=== PATIENT | male | born 1980 | race Hispanic/Latino ===

== ENCOUNTER 2021-06-29 08:07 | Inpatient (IN) | payer BC ==
[~2021-06-29] VITALS: Ht 170.2 cm; Wt 127.0 kg
[2021-06-29 08:40] LABS: BASOPHILS % 0.1 % (0.0-1.0); HEMATOCRIT 47.7 % (38.2-49.6); HEMOGLOBIN 15.8 g/dL (14.0-18.0); LYMPHOCYTES # (AUTO) 1.8 (1.0-3.2); MEAN CORPUSCULAR HEMOGLOBIN 30.1 pg (28-32); MEAN CORPUSCULAR HGB CONC 33.1 g/dL (31-35); MEAN CORPUSCULAR VOLUME 90.9 fL (81-99); MONOCYTES # (AUTO) 0.5 (0.2-0.8); MONOCYTES % 4.6 % (4.4-11.3); NEUTROPHILS # (AUTO) 7.6 (2.1-6.9); NEUTROPHILS % 76.6 % (38.7-80.0); PLATELET COUNT 151 x10e3/uL (140-360); RED BLOOD COUNT 5.25 x10e6/uL (4.3-5.7); RED CELL DISTRIBUTION WIDTH 13.8 % (11.7-14.4)
[2021-06-29 09:04] LABS: ALBUMIN 3.3 g/dL (3.5-5.0); ALBUMIN/GLOBULIN RATIO 0.7 (0.8-2.0); ANION GAP 16.1 mmol/L (8-16); CALCIUM 8.5 mg/dL (8.4-10.2); POTASSIUM 4.1 mmol/L (3.5-5.1)
[2021-06-29 09:56] LABS: CREATINE KINASE MB 0.6 ng/mL (0-5.0)
[2021-06-29] MEDS ORDERED: DEXAMETHASONE 4 MG TAB PO SCH (13:00)
[2021-06-29] MEDS: CEFTRIAXONE 2 GM in SODIUM CHLORIDE 0.9% 100 ML IV SCH (14:00)
[2021-06-29] MEDS: ZINC SULFATE 220 MG CAP PO SCH (15:00)
[2021-06-29] MEDS: DEXAMETHASONE SOD PHOS 10 MG/1 ML VIAL IV SCH (16:00)
[2021-06-29] MEDS ORDERED: REMDESIVIR 200MG/NS 100ML 200 MG IV ONE (16:00)
[2021-06-29 16:45] LABS: CREATINE KINASE MB 0.6 ng/mL (0-5.0)
[2021-06-29] MEDS ORDERED: LACTATED RINGER'S 1,000 ML INJ ONE (16:45)
[2021-06-29] MEDS: ASCORBIC ACID 500 MG TAB PO SCH (16:55)
[2021-06-29] MEDS: ACETAMINOPHEN 325 MG TAB PO PRN (18:34)
[2021-06-29] MEDS ORDERED: ZOLPIDEM TARTRATE 5 MG TAB PO PRN (21:00)
[2021-06-29] MEDS: ENOXAPARIN 30 MG/0.3 ML SYR SC SCH (22:33)
[2021-06-30 06:06] LABS: BASOPHILS % 0.1 % (0.0-1.0); HEMATOCRIT 43.9 % (38.2-49.6); HEMOGLOBIN 14.3 g/dL (14.0-18.0); LYMPHOCYTES # (AUTO) 1.3 (1.0-3.2); LYMPHOCYTES % 18.2 % (18.0-39.1); MEAN CORPUSCULAR HEMOGLOBIN 29.9 pg (28-32); MEAN CORPUSCULAR HGB CONC 32.6 g/dL (31-35); MEAN CORPUSCULAR VOLUME 91.6 fL (81-99); MONOCYTES # (AUTO) 0.4 (0.2-0.8); MONOCYTES % 5.6 % (4.4-11.3); NEUTROPHILS # (AUTO) 5.5 (2.1-6.9); NEUTROPHILS % 75.4 % (38.7-80.0); PLATELET COUNT 156 x10e3/uL (140-360); RED BLOOD COUNT 4.79 x10e6/uL (4.3-5.7); RED CELL DISTRIBUTION WIDTH 13.9 % (11.7-14.4)
[2021-06-30 06:32] LABS: POTASSIUM 4.3 mmol/L (3.5-5.1)
[2021-06-30 07:00] LABS: ALBUMIN 2.8 g/dL (3.5-5.0); ALBUMIN/GLOBULIN RATIO 0.7 (0.8-2.0); ANION GAP 14.3 mmol/L (8-16); CREATININE, SERUM 0.8 mg/dL (0.72-1.25)
[2021-06-30 07:21] LABS: CREATINE KINASE MB 0.7 ng/mL (0-5.0)
[2021-06-30] MEDS: ASCORBIC ACID 500 MG TAB PO SCH ×2 (08:00→16:24)
[2021-06-30] MEDS: ZINC SULFATE 220 MG CAP PO SCH (08:00)
[2021-06-30] MEDS: FAMOTIDINE 20 MG TAB PO SCH ×2 (08:00→16:24)
[2021-06-30] MEDS: ENOXAPARIN 30 MG/0.3 ML SYR SC SCH ×2 (09:41→21:00)
[2021-06-30] MEDS: CEFTRIAXONE 2 GM in SODIUM CHLORIDE 0.9% 100 ML IV SCH (14:08)
[2021-06-30] MEDS: BARICITINIB 2 MG TABLET PO SCH (16:24)
[2021-06-30] MEDS: DEXAMETHASONE SOD PHOS 10 MG/1 ML VIAL IV SCH (16:24)
[2021-06-30] MEDS: REMDESIVIR 100MG/NS 100ML 100 MG IV SCH (17:00)
[2021-06-30] MEDS: ACETAMINOPHEN 325 MG TAB PO PRN (21:43)
[2021-07-01 06:40] LABS: BASOPHILS % 0.1 % (0.0-1.0); HEMATOCRIT 42.6 % (38.2-49.6); HEMOGLOBIN 13.9 g/dL (14.0-18.0); LYMPHOCYTES # (AUTO) 1.5 (1.0-3.2); LYMPHOCYTES % 14.5 % (18.0-39.1); MEAN CORPUSCULAR HEMOGLOBIN 29.8 pg (28-32); MEAN CORPUSCULAR HGB CONC 32.6 g/dL (31-35); MEAN CORPUSCULAR VOLUME 91.4 fL (81-99); MONOCYTES # (AUTO) 0.6 (0.2-0.8); MONOCYTES % 5.7 % (4.4-11.3); NEUTROPHILS # (AUTO) 8.2 (2.1-6.9); NEUTROPHILS % 79.1 % (38.7-80.0); PLATELET COUNT 190 x10e3/uL (140-360); RED BLOOD COUNT 4.66 x10e6/uL (4.3-5.7); RED CELL DISTRIBUTION WIDTH 13.7 % (11.7-14.4)
[2021-07-01] MEDS: ZINC SULFATE 220 MG CAP PO SCH (07:03)
[2021-07-01] MEDS: ENOXAPARIN 30 MG/0.3 ML SYR SC SCH ×2 (07:03→22:33)
[2021-07-01] MEDS: ASCORBIC ACID 500 MG TAB PO SCH ×2 (07:03→17:05)
[2021-07-01] MEDS: FAMOTIDINE 20 MG TAB PO SCH ×2 (07:03→17:05)
[2021-07-01 07:05] LABS: ALBUMIN 2.6 g/dL (3.5-5.0); ALBUMIN/GLOBULIN RATIO 0.6 (0.8-2.0); ANION GAP 12.3 mmol/L (8-16); CREATININE, SERUM 0.75 mg/dL (0.72-1.25); POTASSIUM 4.3 mmol/L (3.5-5.1)
[2021-07-01] MEDS: BARICITINIB 2 MG TABLET PO SCH (09:00)
[2021-07-01] MEDS: CEFTRIAXONE 2 GM in SODIUM CHLORIDE 0.9% 100 ML IV SCH (15:02)
[2021-07-01] MEDS: REMDESIVIR 100MG/NS 100ML 100 MG IV SCH (17:05)
[2021-07-01] MEDS: DEXAMETHASONE SOD PHOS 10 MG/1 ML VIAL IV SCH (17:05)
[2021-07-02 05:27] LABS: HEMATOCRIT 43.7 % (38.2-49.6); LYMPHOCYTES # (AUTO) 1.4 (1.0-3.2); LYMPHOCYTES % 14.1 % (18.0-39.1); MEAN CORPUSCULAR HEMOGLOBIN 29.3 pg (28-32); MEAN CORPUSCULAR VOLUME 91.4 fL (81-99); MONOCYTES # (AUTO) 0.6 (0.2-0.8); MONOCYTES % 5.8 % (4.4-11.3); NEUTROPHILS % 79.2 % (38.7-80.0); PLATELET COUNT 236 x10e3/uL (140-360); RED BLOOD COUNT 4.78 x10e6/uL (4.3-5.7); RED CELL DISTRIBUTION WIDTH 13.8 % (11.7-14.4)
[2021-07-02 05:39] LABS: ALBUMIN 2.7 g/dL (3.5-5.0); ALBUMIN/GLOBULIN RATIO 0.6 (0.8-2.0); ANION GAP 14.1 mmol/L (8-16); CALCIUM 8.2 mg/dL (8.4-10.2); CREATININE, SERUM 0.77 mg/dL (0.72-1.25); POTASSIUM 4.1 mmol/L (3.5-5.1)
[2021-07-02] MEDS: ENOXAPARIN 30 MG/0.3 ML SYR SC SCH ×2 (09:00→21:00)
[2021-07-02] MEDS: FAMOTIDINE 20 MG TAB PO SCH ×2 (09:00→16:50)
[2021-07-02] MEDS: ZINC SULFATE 220 MG CAP PO SCH (09:00)
[2021-07-02] MEDS: ASCORBIC ACID 500 MG TAB PO SCH ×2 (09:00→16:50)
[2021-07-02] MEDS: BARICITINIB 2 MG TABLET PO SCH (09:00)
[2021-07-02] MEDS: REMDESIVIR 100MG/NS 100ML 100 MG IV SCH (13:57)
[2021-07-02] MEDS: CEFTRIAXONE 2 GM in SODIUM CHLORIDE 0.9% 100 ML IV SCH (14:37)
[2021-07-02] MEDS: DEXAMETHASONE SOD PHOS 10 MG/1 ML VIAL IV SCH (15:47)
[2021-07-03 06:28] LABS: BASOPHILS % 0.1 % (0.0-1.0); HEMOGLOBIN 14.6 g/dL (14.0-18.0); LYMPHOCYTES # (AUTO) 1.6 (1.0-3.2); LYMPHOCYTES % 18.1 % (18.0-39.1); MEAN CORPUSCULAR HEMOGLOBIN 29.6 pg (28-32); MEAN CORPUSCULAR HGB CONC 32.4 g/dL (31-35); MEAN CORPUSCULAR VOLUME 91.3 fL (81-99); MONOCYTES # (AUTO) 0.6 (0.2-0.8); MONOCYTES % 6.4 % (4.4-11.3); NEUTROPHILS # (AUTO) 6.7 (2.1-6.9); NEUTROPHILS % 74.6 % (38.7-80.0); PLATELET COUNT 265 x10e3/uL (140-360); RED BLOOD COUNT 4.93 x10e6/uL (4.3-5.7); RED CELL DISTRIBUTION WIDTH 13.5 % (11.7-14.4)
[2021-07-03 06:57] LABS: ANION GAP 12.4 mmol/L (8-16); CALCIUM 8.4 mg/dL (8.4-10.2); CREATININE, SERUM 0.77 mg/dL (0.72-1.25); POTASSIUM 4.4 mmol/L (3.5-5.1)
[2021-07-03] MEDS: FAMOTIDINE 20 MG TAB PO SCH ×2 (07:30→17:20)
[2021-07-03 07:51] LABS: ALBUMIN 2.9 g/dL (3.5-5.0); BILIRUBIN,DIRECT 0.2 mg/dL (0.0-0.5)
[2021-07-03] MEDS: REMDESIVIR 100MG/NS 100ML 100 MG IV SCH (16:00)
[2021-07-03] MEDS: DEXAMETHASONE SOD PHOS 10 MG/1 ML VIAL IV SCH (17:19)
[2021-07-03] MEDS: ENOXAPARIN 30 MG/0.3 ML SYR SC SCH ×2 (17:19→21:00)
[2021-07-03] MEDS: ASCORBIC ACID 500 MG TAB PO SCH ×2 (17:19→17:20)
[2021-07-03] MEDS: BARICITINIB 2 MG TABLET PO SCH (17:19)
[2021-07-03] MEDS: ZINC SULFATE 220 MG CAP PO SCH (17:19)
[2021-07-04] MEDS: ENOXAPARIN 30 MG/0.3 ML SYR SC SCH ×2 (05:36→16:31)
[2021-07-04 05:44] LABS: BASOPHILS % 0.1 % (0.0-1.0); HEMATOCRIT 44.4 % (38.2-49.6); HEMOGLOBIN 14.5 g/dL (14.0-18.0); LYMPHOCYTES # (AUTO) 1.2 (1.0-3.2); LYMPHOCYTES % 14.8 % (18.0-39.1); MEAN CORPUSCULAR HEMOGLOBIN 30.3 pg (28-32); MEAN CORPUSCULAR HGB CONC 32.7 g/dL (31-35); MEAN CORPUSCULAR VOLUME 92.7 fL (81-99); MONOCYTES # (AUTO) 0.5 (0.2-0.8); MONOCYTES % 5.7 % (4.4-11.3); NEUTROPHILS # (AUTO) 6.5 (2.1-6.9); NEUTROPHILS % 78.2 % (38.7-80.0); PLATELET COUNT 250 x10e3/uL (140-360); RED BLOOD COUNT 4.79 x10e6/uL (4.3-5.7); RED CELL DISTRIBUTION WIDTH 13.3 % (11.7-14.4)
[2021-07-04 06:10] LABS: ALBUMIN 2.8 g/dL (3.5-5.0); ALBUMIN/GLOBULIN RATIO 0.7 (0.8-2.0); ANION GAP 13.3 mmol/L (8-16); CALCIUM 8.1 mg/dL (8.4-10.2); CREATININE, SERUM 0.79 mg/dL (0.72-1.25); POTASSIUM 4.3 mmol/L (3.5-5.1)
[2021-07-04] MEDS: ASCORBIC ACID 500 MG TAB PO SCH ×2 (10:34→16:31)
[2021-07-04] MEDS: ZINC SULFATE 220 MG CAP PO SCH (10:34)
[2021-07-04] MEDS: FAMOTIDINE 20 MG TAB PO SCH ×2 (10:34→16:31)
[2021-07-04] MEDS: DEXAMETHASONE SOD PHOS 10 MG/1 ML VIAL IV SCH (16:30)
[2021-07-04] MEDS: BARICITINIB 2 MG TABLET PO SCH (16:30)
[2021-07-04] MEDS: REMDESIVIR 100MG/NS 100ML 100 MG IV SCH (16:31)
[2021-07-05 05:52] LABS: BASOPHILS % 0.1 % (0.0-1.0); HEMATOCRIT 44.4 % (38.2-49.6); HEMOGLOBIN 14.4 g/dL (14.0-18.0); LYMPHOCYTES # (AUTO) 1.4 (1.0-3.2); LYMPHOCYTES % 15.6 % (18.0-39.1); MEAN CORPUSCULAR HEMOGLOBIN 29.4 pg (28-32); MEAN CORPUSCULAR HGB CONC 32.4 g/dL (31-35); MEAN CORPUSCULAR VOLUME 90.6 fL (81-99); MONOCYTES # (AUTO) 0.5 (0.2-0.8); MONOCYTES % 6.1 % (4.4-11.3); NEUTROPHILS # (AUTO) 6.8 (2.1-6.9); NEUTROPHILS % 77.3 % (38.7-80.0); PLATELET COUNT 286 x10e3/uL (140-360); RED CELL DISTRIBUTION WIDTH 13.2 % (11.7-14.4)
[2021-07-05 06:27] LABS: ALBUMIN 2.8 g/dL (3.5-5.0); ALBUMIN/GLOBULIN RATIO 0.7 (0.8-2.0); ANION GAP 13.4 mmol/L (8-16); CALCIUM 8.6 mg/dL (8.4-10.2); CREATININE, SERUM 0.74 mg/dL (0.72-1.25); POTASSIUM 4.4 mmol/L (3.5-5.1)
[2021-07-05] MEDS: ASCORBIC ACID 500 MG TAB PO SCH ×2 (07:52→16:14)
[2021-07-05] MEDS: ENOXAPARIN 30 MG/0.3 ML SYR SC SCH ×2 (07:52→21:00)
[2021-07-05] MEDS: ZINC SULFATE 220 MG CAP PO SCH (07:52)
[2021-07-05] MEDS: FAMOTIDINE 20 MG TAB PO SCH ×2 (07:52→16:14)
[2021-07-05] MEDS: BARICITINIB 2 MG TABLET PO SCH (11:06)
[2021-07-05 16:00] VITALS: BP 130/47
[2021-07-05] MEDS: DEXAMETHASONE SOD PHOS 10 MG/1 ML VIAL IV SCH (16:14)
[2021-07-05 19:00] VITALS: BP 160/90
[2021-07-05 19:52] VITALS: BP 101/74
[2021-07-05 23:00] VITALS: BP 100/67
[2021-07-06] VITALS (8 sets, daily range): BP systolic 100–127; BP diastolic 67–84
[2021-07-06 06:02] LABS: BASOPHILS % 0.1 % (0.0-1.0); EOSINOPHILS % 0.1 % (0.0-6.0); HEMATOCRIT 44.2 % (38.2-49.6); HEMOGLOBIN 14.5 g/dL (14.0-18.0); LYMPHOCYTES # (AUTO) 1.3 (1.0-3.2); LYMPHOCYTES % 13.9 % (18.0-39.1); MEAN CORPUSCULAR HEMOGLOBIN 29.5 pg (28-32); MEAN CORPUSCULAR HGB CONC 32.8 g/dL (31-35); MONOCYTES # (AUTO) 0.6 (0.2-0.8); MONOCYTES % 6.9 % (4.4-11.3); NEUTROPHILS % 78.1 % (38.7-80.0); PLATELET COUNT 269 x10e3/uL (140-360); RED BLOOD COUNT 4.91 x10e6/uL (4.3-5.7); RED CELL DISTRIBUTION WIDTH 13.2 % (11.7-14.4)
[2021-07-06 06:37] LABS: ALBUMIN 2.8 g/dL (3.5-5.0); ALBUMIN/GLOBULIN RATIO 0.7 (0.8-2.0); ANION GAP 14.3 mmol/L (8-16); CALCIUM 8.3 mg/dL (8.4-10.2); CREATININE, SERUM 0.75 mg/dL (0.72-1.25); POTASSIUM 4.3 mmol/L (3.5-5.1)
[2021-07-06] MEDS: ASCORBIC ACID 500 MG TAB PO SCH ×2 (08:11→19:15)
[2021-07-06] MEDS: ZINC SULFATE 220 MG CAP PO SCH (08:11)
[2021-07-06] MEDS: FAMOTIDINE 20 MG TAB PO SCH ×3 (08:11→19:15)
[2021-07-06] MEDS: ENOXAPARIN 30 MG/0.3 ML SYR SC SCH (08:12)
[2021-07-06] MEDS: BARICITINIB 2 MG TABLET PO SCH (08:17)
[2021-07-06] MEDS ORDERED: DEXTROSE 50% SYRINGE 50 ML IV PRN (13:15)
[2021-07-06] MEDS: INSULIN LISPRO 100 UNIT/1 ML 3ML VIAL SQ SCH ×2 (16:30→22:06)
[2021-07-06] MEDS ORDERED: DEXAMETHASONE SOD PHOS 10 MG/1 ML VIAL IV SCH (22:00)
[2021-07-06] MEDS: DEXAMETHASONE PHOS IV SCH (22:07)
[2021-07-06] MEDS: SODIUM CHLORIDE 0.9% IV SCH (22:07)
[2021-07-06] MEDS ORDERED: DEXAMETHASONE SOD PHOS 10 MG/1 ML VIAL ONE (22:15)
[2021-07-07] VITALS (10 sets, daily range): BP systolic 101–113; BP diastolic 58–71
[2021-07-07 05:36] LABS: BASOPHILS % 0.1 % (0.0-1.0); EOSINOPHILS % 0.1 % (0.0-6.0); HEMATOCRIT 43.2 % (38.2-49.6); HEMOGLOBIN 14.3 g/dL (14.0-18.0); LYMPHOCYTES % 10.5 % (18.0-39.1); MEAN CORPUSCULAR HGB CONC 33.1 g/dL (31-35); MEAN CORPUSCULAR VOLUME 90.6 fL (81-99); MONOCYTES # (AUTO) 0.4 (0.2-0.8); MONOCYTES % 3.9 % (4.4-11.3); NEUTROPHILS % 84.7 % (38.7-80.0); PLATELET COUNT 263 x10e3/uL (140-360); RED BLOOD COUNT 4.77 x10e6/uL (4.3-5.7); RED CELL DISTRIBUTION WIDTH 13.2 % (11.7-14.4)
[2021-07-07 06:01] LABS: ANION GAP 13.6 mmol/L (8-16); CALCIUM 8.2 mg/dL (8.4-10.2); CREATININE, SERUM 0.76 mg/dL (0.72-1.25); POTASSIUM 4.6 mmol/L (3.5-5.1)
[2021-07-07] MEDS: BARICITINIB 2 MG TABLET PO SCH (07:58)
[2021-07-07] MEDS: FAMOTIDINE 20 MG TAB PO SCH ×2 (07:58→16:14)
[2021-07-07] MEDS: INSULIN LISPRO 100 UNIT/1 ML 3ML VIAL SQ SCH ×4 (07:58→22:05)
[2021-07-07] MEDS: ZINC SULFATE 220 MG CAP PO SCH (07:58)
[2021-07-07] MEDS: ASCORBIC ACID 500 MG TAB PO SCH ×2 (07:58→16:19)
[2021-07-07] MEDS: SODIUM CHLORIDE 0.9% IV SCH (22:02)
[2021-07-07] MEDS: DEXAMETHASONE PHOS IV SCH (22:02)
[2021-07-08] VITALS (12 sets, daily range): BP systolic 99–139; BP diastolic 61–82
[2021-07-08 06:14] LABS: BASOPHILS % 0.1 % (0.0-1.0); EOSINOPHILS % 0.1 % (0.0-6.0); HEMATOCRIT 43.5 % (38.2-49.6); HEMOGLOBIN 14.2 g/dL (14.0-18.0); LYMPHOCYTES # (AUTO) 0.9 (1.0-3.2); LYMPHOCYTES % 11.1 % (18.0-39.1); MEAN CORPUSCULAR HEMOGLOBIN 29.3 pg (28-32); MEAN CORPUSCULAR HGB CONC 32.6 g/dL (31-35); MEAN CORPUSCULAR VOLUME 89.9 fL (81-99); MONOCYTES # (AUTO) 0.4 (0.2-0.8); MONOCYTES % 4.8 % (4.4-11.3); NEUTROPHILS # (AUTO) 6.9 (2.1-6.9); NEUTROPHILS % 82.8 % (38.7-80.0); PLATELET COUNT 258 x10e3/uL (140-360); RED BLOOD COUNT 4.84 x10e6/uL (4.3-5.7)
[2021-07-08 06:39] LABS: ANION GAP 16.7 mmol/L (8-16); CALCIUM 8.1 mg/dL (8.4-10.2); CREATININE, SERUM 0.71 mg/dL (0.72-1.25); POTASSIUM 4.7 mmol/L (3.5-5.1)
[2021-07-08] MEDS: ZINC SULFATE 220 MG CAP PO SCH (08:47)
[2021-07-08] MEDS: BARICITINIB 2 MG TABLET PO SCH (08:47)
[2021-07-08] MEDS: FAMOTIDINE 20 MG TAB PO SCH ×2 (08:47→16:36)
[2021-07-08] MEDS: ASCORBIC ACID 500 MG TAB PO SCH ×2 (08:47→16:36)
[2021-07-08] MEDS: INSULIN LISPRO 100 UNIT/1 ML 3ML VIAL SQ SCH ×4 (08:56→21:03)
[2021-07-08] MEDS ORDERED: ENOXAPARIN 30 MG/0.3 ML SYR SC SCH (11:30)
[2021-07-08] MEDS: ENOXAPARIN SODIUM INJ 100 MG/ML SYR SC SCH ×2 (11:39→23:26)
[2021-07-08] MEDS: DEXAMETHASONE PHOS IV SCH (21:10)
[2021-07-08] MEDS: SODIUM CHLORIDE 0.9% IV SCH (21:10)
[2021-07-09] VITALS (9 sets, daily range): BP systolic 92–110; BP diastolic 59–77
[2021-07-09] MEDS: INSULIN LISPRO 100 UNIT/1 ML 3ML VIAL SQ SCH ×4 (07:30→21:45)
[2021-07-09] MEDS: FAMOTIDINE 20 MG TAB PO SCH ×2 (08:00→17:08)
[2021-07-09] MEDS: ZINC SULFATE 220 MG CAP PO SCH (09:08)
[2021-07-09] MEDS: BARICITINIB 2 MG TABLET PO SCH (09:08)
[2021-07-09] MEDS: ASCORBIC ACID 500 MG TAB PO SCH ×2 (09:08→17:08)
[2021-07-09] MEDS: ENOXAPARIN SODIUM INJ 100 MG/ML SYR SC SCH ×2 (11:10→22:44)
[2021-07-09] MEDS: SODIUM CHLORIDE 0.9% IV SCH (21:43)
[2021-07-09] MEDS: DEXAMETHASONE PHOS IV SCH (21:43)
[2021-07-10 04:55] VITALS: BP 94/52
[2021-07-10 06:00] LABS: BASOPHILS % 0.1 % (0.0-1.0); EOSINOPHILS % 0.1 % (0.0-6.0); HEMATOCRIT 43.3 % (38.2-49.6); HEMOGLOBIN 14.3 g/dL (14.0-18.0); LYMPHOCYTES # (AUTO) 1.2 (1.0-3.2); LYMPHOCYTES % 13.6 % (18.0-39.1); MEAN CORPUSCULAR HEMOGLOBIN 29.8 pg (28-32); MEAN CORPUSCULAR VOLUME 90.2 fL (81-99); MONOCYTES # (AUTO) 0.3 (0.2-0.8); MONOCYTES % 3.4 % (4.4-11.3); NEUTROPHILS # (AUTO) 7.5 (2.1-6.9); NEUTROPHILS % 82.1 % (38.7-80.0); PLATELET COUNT 193 x10e3/uL (140-360)
[2021-07-10 06:40] LABS: ANION GAP 14.6 mmol/L (8-16); CREATININE, SERUM 0.72 mg/dL (0.72-1.25); POTASSIUM 4.6 mmol/L (3.5-5.1)
[2021-07-10 08:20] VITALS: BP 111/79
[2021-07-10] MEDS: BARICITINIB 2 MG TABLET PO SCH (08:30)
[2021-07-10] MEDS: INSULIN LISPRO 100 UNIT/1 ML 3ML VIAL SQ SCH ×4 (08:30→21:00)
[2021-07-10] MEDS: FAMOTIDINE 20 MG TAB PO SCH ×2 (08:30→17:07)
[2021-07-10] MEDS: ASCORBIC ACID 500 MG TAB PO SCH ×2 (08:30→17:07)
[2021-07-10] MEDS: ZINC SULFATE 220 MG CAP PO SCH (08:30)
[2021-07-10] MEDS: ENOXAPARIN SODIUM INJ 100 MG/ML SYR SC SCH ×2 (11:30→22:50)
[2021-07-10 12:15] VITALS: BP 109/40
[2021-07-10 17:00] VITALS: BP 120/65
[2021-07-10 20:00] VITALS: BP 132/93
[2021-07-10] MEDS ORDERED: DEXAMETHASONE SOD PHOS 10 MG/1 ML VIAL ONE (20:35)
[2021-07-10 21:38] VITALS: BP 132/93
[2021-07-10] MEDS: SODIUM CHLORIDE 0.9% IV SCH (21:45)
[2021-07-10] MEDS: DEXAMETHASONE PHOS IV SCH (21:45)
[2021-07-11] VITALS (8 sets, daily range): BP systolic 101–140; BP diastolic 63–87
[2021-07-11 06:02] LABS: BASOPHILS % 0.1 % (0.0-1.0); HEMATOCRIT 42.6 % (38.2-49.6); HEMOGLOBIN 14.1 g/dL (14.0-18.0); LYMPHOCYTES # (AUTO) 1.3 (1.0-3.2); LYMPHOCYTES % 13.2 % (18.0-39.1); MEAN CORPUSCULAR HEMOGLOBIN 29.9 pg (28-32); MEAN CORPUSCULAR HGB CONC 33.1 g/dL (31-35); MEAN CORPUSCULAR VOLUME 90.3 fL (81-99); MONOCYTES # (AUTO) 0.4 (0.2-0.8); MONOCYTES % 3.9 % (4.4-11.3); NEUTROPHILS # (AUTO) 7.9 (2.1-6.9); NEUTROPHILS % 82.3 % (38.7-80.0); PLATELET COUNT 176 x10e3/uL (140-360); RED BLOOD COUNT 4.72 x10e6/uL (4.3-5.7); RED CELL DISTRIBUTION WIDTH 12.9 % (11.7-14.4)
[2021-07-11 06:29] LABS: ANION GAP 12.4 mmol/L (8-16); CALCIUM 8.5 mg/dL (8.4-10.2); CREATININE, SERUM 0.72 mg/dL (0.72-1.25); POTASSIUM 4.4 mmol/L (3.5-5.1)
[2021-07-11] MEDS: FAMOTIDINE 20 MG TAB PO SCH ×2 (08:15→17:30)
[2021-07-11] MEDS: ASCORBIC ACID 500 MG TAB PO SCH ×2 (08:15→17:30)
[2021-07-11] MEDS: ZINC SULFATE 220 MG CAP PO SCH (08:15)
[2021-07-11] MEDS: BARICITINIB 2 MG TABLET PO SCH (08:15)
[2021-07-11] MEDS: INSULIN LISPRO 100 UNIT/1 ML 3ML VIAL SQ SCH ×4 (08:20→21:30)
[2021-07-11] MEDS: ENOXAPARIN SODIUM INJ 100 MG/ML SYR SC SCH ×2 (11:35→23:00)
[2021-07-11] MEDS ORDERED: SODIUM CHLORIDE 0.9% 50ML 50 ML ONE (20:20)
[2021-07-11] MEDS ORDERED: IOPAMIDOL 370 MG/ML 200 ML INFUS..BTL INJ ONE (20:21)
[2021-07-11] MEDS: DEXAMETHASONE PHOS IV SCH (22:00)
[2021-07-11] MEDS: SODIUM CHLORIDE 0.9% IV SCH (22:00)
[2021-07-12] VITALS: BP 128/64
[2021-07-12 02:00] VITALS: BP 124/91
[2021-07-12 04:00] VITALS: BP 124/91
[2021-07-12 07:00] VITALS: BP 103/46
[2021-07-12 07:32] VITALS: BP 124/91
[2021-07-12] MEDS: BARICITINIB 2 MG TABLET PO SCH (09:02)
[2021-07-12] MEDS: ASCORBIC ACID 500 MG TAB PO SCH (09:03)
[2021-07-12] MEDS: ZINC SULFATE 220 MG CAP PO SCH (09:03)
[2021-07-12] MEDS: FAMOTIDINE 20 MG TAB PO SCH (09:03)
[2021-07-12] MEDS: ENOXAPARIN SODIUM INJ 100 MG/ML SYR SC SCH (09:09)
[2021-07-12] MEDS: INSULIN LISPRO 100 UNIT/1 ML 3ML VIAL SQ SCH ×2 (09:09→12:40)
[2021-07-12 12:00] VITALS: BP 111/72
== END 2021-07-12 15:14 | disposition home or self-care (01) | DRG 177 ==
LOC: ER 08:40 → ERHOLD 09:17 → IMCU 07-05 17:10
PROVIDERS: ADMIT Internal Medicine; ATTEND Internal Medicine
PROC: 8E0ZXY6 Isolation (ICD-10-PCS; principal; 2021-06-29)
PROC: XW043E5 Introduction of Remdesivir Anti-infective into Central Vein, Percutaneous Approach, New Technology Group 5 (ICD-10-PCS; 2021-06-29)
PROC: 02HV33Z Insertion of Infusion Device into Superior Vena Cava, Percutaneous Approach (ICD-10-PCS; 2021-06-29)
DX: U07.1 COVID-19 (principal); J12.82 Pneumonia due to coronavirus disease 2019; J96.01 Acute respiratory failure with hypoxia; Z68.41 Body mass index [BMI] 40.0-44.9, adult; B17.8 Other specified acute viral hepatitis; I48.92 Unspecified atrial flutter; E66.9 Obesity, unspecified; E88.09 Other disorders of plasma-protein metabolism, not elsewhere classified; E11.65 Type 2 diabetes mellitus with hyperglycemia; R00.1 Bradycardia, unspecified
CPT/HCPCS: 36415; 36569; 71045; 71260; 74470; 80048; 80053; 80076; 82550; 82553; 82948; 83036; 84484; 85025; 85379; 86140; 93005; 93306; 96372; 99285; J0456; J0696; J1100; J1650; J7050; Q9967; U0002